=== PATIENT | female | born 1965 | race Caucasian/White ===

== ENCOUNTER 2018-12-27 22:51 | Emergency (ER) | payer SELFPAY ==
--- NOTE | 2018-12-27 23:01 | ED.PDOC ---
History of Present Illness - General Chief Complaint: Chest Pain/RI Stated Complaint: CP, SOB Time Seen by Provider: 12/27/18 22:58 Source: patient, EMS Exam Limitations: no limitations - History of Present Illness Initial Comments: patient comes in today for severe chest pain. Patient was in the shower in her usual health. When she got out she suddenly had chest tightness but converted to severe pain that radiated up her jaw and with associated shortness of breath. Patient made the bed where she lay down and her sister found her 5-10 minutes later and called 911. Patient states she continued to not be able to breathe into a second nitroglycerin was given to her via EMS. She was given aspirin as well. Patient currently is asymptomatic and feels well. Patient has a past medical history of hypertension and takes losartan. Patient states she is a smoker and has smoked a pack a day for greater than 30 years. She does not normally require oxygen but has oxygen on secondary to shortness of breath that was placed by EMS. Patient denies any nausea, vomiting, or diaphoresis. She has not been sick recently and denies any fever, chills cough or cold symptoms. Patient does not have reflux, abdominal pain, or right upper quadrant pain. Patient has no family history of coronary artery disease. Timing/Duration: 1/2 hour Severity/Quality: severe, tightness Location: substernal Chest Pain Radiation: jaw Activities at Onset: other - shower Prior Chest Pain/Cardiac Workup: no prior chest pain, no prior cardiac workup Improving Factors: medication Worsening Factors: nothing Nitro Today/Relief: 0.4 mg x 2, provided by EMS, complete relief Aspirin Treatment Today: 325 mg x 1, provided by EMS Associated Symptoms: shortness of breath Allergies/Adverse Reactions: Allergies Lisinopril Allergy (Verified 12/27/18 22:54) Sulfa Antibiotics Allergy (Verified 12/27/18 22:54) Home Medications: Ambulatory Orders Gabapentin 100 mg PO DAILY 12/27/18 Losartan Potassium [Cozaar] 50 mg PO DAILY 12/27/18 Naproxen [EC-Naprosyn] 500 mg PO BID 12/27/18 Omeprazole [Prilosec Cap] 20 mg PO ACBK 12/27/18 Paroxetine HCl 40 mg PO DAILY 12/27/18 Tramadol HCl 50 mg PO BID 12/27/18 Review of Systems - Review of Systems Constitutional: States: no symptoms reported. Denies: chills, fever EENTM: States: no symptoms reported. Denies: blurred vision, ear pain, throat pain Respiratory: States: short of breath. Denies: cough, wheezing Cardiology: States: chest pain. Denies: edema, palpitations Gastrointestinal/Abdominal: States: no symptoms reported. Denies: abdominal pain, nausea, vomiting Musculoskeletal: States: no symptoms reported Skin: States: no symptoms reported Past Medical History (General) - Patient Medical History Hx Hypertension: Yes Hx Other PMH: Yes - Anxiety Family Medical History - Family History Mother Living Status: Hx Family Asthma: No Hx Family Hypertension: Yes Hx Family Stroke: Yes Hx Cardiac Disease: Yes Hx Family Diabetes: No Hx Family Cancer: Yes Physical Exam - Physical Exam General Appearance: Alert, Comfortable, No apparent distress Eyes, Ears, Nose, Throat Exam: PERRL/EOMI, normal ENT inspection, TMs normal, pharynx normal Neck: non-tender, full range of motion, supple, normal inspection Respiratory: chest non-tender, lungs clear, normal breath sounds, no respiratory distress Cardiovascular/Chest: normal peripheral pulses, regular rate, rhythm, no edema, no gallop, no JVD, no murmur Peripheral Pulses: radial,right: 2+, radial,left: 2+ Gastrointestinal/Abdominal: normal bowel sounds, non tender, soft Extremity: non-tender, normal inspection Neurologic: alert, oriented x 3 Skin Exam: normal color Progress - Progress Progress: Patient hat complete relief of all symptoms after 2 nitro. However, her D-dimer was elevated and on questioning she did note some swelling of her left leg yesterday, although better today. Patient was informed of results and was sent for CTA to rule out PE. Patient had extravasation of 96 ml of Optiray 320. We have elevated, wrapped, and applied heat to the area. She declines pain medication at this time and there is good pulses and sensation distal to the area. We discussed that we cannot at this time rule out PE and Duplex doppler will not be available until Saturday but we could offer monitoring and Lovenox in the meantime. Patient and family are understandable hesitant to take any additional medication without diagnosis and request transfer to facility that can do other tests. We have consulted with [facility] who have accepted transfer. 12/28/18 00:40 - Results/Orders Results/Orders: 12/27/18 22:55 Telemetry .ONCE EKG Stat Pulse Ox Stat Pulse Oximetry Assessment DAILY Laboratory Results WBC 10.0 K/mm3 (4.8-10.8) 12/27/18 22:55 RBC 4.85 M/mm3 (4.20-5.40) 12/27/18 22:55 Hgb 14.8 gm/dL (12.0-16.0) 12/27/18 22:55 Hct 43.4 % (36.0-47.0) 12/27/18 22:55 MCV 89.4 fl (81.0-99.0) 12/27/18 22:55 MCH 30.5 pg (27.0-31.0) 12/27/18 22:55 MCHC 34.1 g/dL (33.0-37.0) 12/27/18 22:55 RDW 14.4 % (11.5-14.5) 12/27/18 22:55 Plt Count 235 K/mm3 (130-400) 12/27/18 22:55 MPV 9.3 fl (7.40-10.4) 12/27/18 22:55 Absolute Neuts (auto) 6.50 K/uL (1.8-6.8) 12/27/18 22:55 Absolute Lymphs (auto) 2.20 K/uL (1.0-3.4) 12/27/18 22:55 Absolute Monos (auto) 0.80 K/uL (0.2-0.8) 12/27/18 22:55 Absolute Eos (auto) 0.40 K/uL (0.0-0.4) 12/27/18 22:55 Absolute Basos (auto) 0.10 K/uL (0.0-0.1) 12/27/18 22:55 Neutrophils % 64.7 % (42.0-78.0) 12/27/18 22:55 Lymphocytes % 22.0 % (20.0-50.0) 12/27/18 22:55 Monocytes % 8.4 % (2.0-9.0) 12/27/18 22:55 Eosinophils % 3.6 % (1.0-5.0) 12/27/18 22:55 Basophils % 1.3 % (0.0-2.0) 12/27/18 22:55 PT 9.2 SECONDS (9.0-10.9) 12/27/18 22:55 INR 0.92 (0.9-1.15) 12/27/18 22:55 PTT (SP) 23.0 SECONDS (21.8-31.6) 12/27/18 22:55 D-Dimer, Quantitative 0.64 mg/L FEU (0-0.49) H* 12/27/18 22:55 Sodium 139 mmol/L (135-145) 12/27/18 22:55 Potassium 3.9 mmol/L (3.6-5.0) 12/27/18 22:55 Chloride 106 mmol/L (101-111) 12/27/18 22:55 Carbon Dioxide 23 mmol/L (21-31) 12/27/18 22:55 Anion Gap 13.9 (12-18) 12/27/18 22:55 BUN 26 mg/dL (7-18) H 12/27/18 22:55 Creatinine 0.80 mg/dL (0.6-1.3) 12/27/18 22:55 BUN/Creatinine Ratio 32.5 (10-20) H 12/27/18 22:55 Random Glucose 129 mg/dL (70-105) H 12/27/18 22:55 Serum Osmolality 284.0 mOsm/L (275-295) 12/27/18 22:55 Calcium 8.3 mg/dL (8.4-10.2) L 12/27/18 22:55 Magnesium 2.1 mg/dL (1.8-2.5) 12/27/18 22:55 Total Bilirubin < 0.2 mg/dL (0.2-1.0) L 12/27/18 22:55 Direct Bilirubin < 0.1 mg/dL (0-0.2) 12/27/18 22:55 Indirect Bilirubin 0.1 mg/dL (0.2-0.8) L 12/27/18 22:55 AST 18 IU/L (10-42) 12/27/18 22:55 ALT 15 IU/L (10-60) 12/27/18 22:55 Alkaline Phosphatase 73 IU/L (42-121) 12/27/18 22:55 Creatine Kinase 153 IU/L (26-140) H 12/27/18 22:55 CK-MB (CK-2) 5.1 ng/mL (0.0-4.4) H* 12/27/18 22:55 CK-MB (CK-2) % 3.33 % (0.0-4.3) 12/27/18 22:55 Troponin I < 0.02 ng/mL (0.01-0.05) 12/27/18 22:55 B-Natriuretic Peptide < 5.0 pg/ml (0-100) 12/27/18 22:55 Serum Total Protein 5.9 gm/dL (6.4-8.2) L 12/27/18 22:55 Albumin 3.2 g/dl (3.2-5.5) 12/27/18 22:55 Patient Name: JAMESON ROBERTS Gender: Female Date of : 1965 Referring Physician: GIOVANNA MCNEAL Organization: [facility] Accession Number: [id number] Requested Date: December 27, 2018 23:29 Report Status: Final Requested Procedure: 1 Procedure Description: Chest w/o Contrast Modality: CT Findings Reporting MD: Abbey Vincent Fellow MD: Not available Dictation Time: Carbon Accountant: Not available Audio Visual Coordinator Date: EXAM: CT Chest Without Intravenous Contrast CLINICAL HISTORY: The patient is 53 years old and is Female; chest pain with elevated D-Dimer r/o PE TECHNIQUE: Axial computed tomography images of the chest without intravenous contrast. Sagittal and coronal reformatted images were created and reviewed. This CT exam was performed using one or more of the following dose reduction techniques: automated exposure control, adjustment of the mA and/or kV according to patient size, and/or use of iterative reconstruction technique. COMPARISON: No relevant prior studies available. FINDINGS: ARTIFACTS: The exam is suboptimal secondary to motion artifact. LUNGS: See below. PLEURAL SPACE: Unremarkable. No pneumothorax. No significant effusion. HEART: No cardiomegaly. No pericardial effusion. MEDIASTINUM: The tracheobronchial tree is widely patent. There is no consolidation. BONES/JOINTS: No acute fracture. SOFT TISSUES: The soft tissues are normal. VASCULATURE: Unremarkable. No thoracic aortic aneurysm. LYMPH NODES: Unremarkable. No enlarged lymph nodes. LIVER: Punctate 4mm low attenuating foci are present within the right hepatic lobe and left hepatic lobe. These are too small to accurately characterize. IMPRESSION: No acute findings on this noncontrasted CT of the chest. Patient Name: JAMESON ROBERTS Gender: Female Date of : 1965 Referring Physician: GIOVANNA MCNEAL Organization: [facility] Accession Number: [id number] Requested Date: December 27, 2018 22:55 Report Status: Final Requested Procedure: 1 Procedure Description: Chest,1 View Modality: CR Findings Reporting MD: Alfredo Aponte Fellow MD: Not available Dictation Time: Carbon Accountant: Not available Audio Visual Coordinator Date: EXAM DESCRIPTION: Chest,1 View CLINICAL HISTORY: 53 years Female, CP COMPARISON: None. FINDINGS: Small amount of hazy, vague opacity in the medial right upper lung zone is demonstrated with obscuration of the right heart border. No pneumothorax. No significant pleural effusion. Cardiomediastinal silhouette is unremarkable. Osseous structures are unremarkable. IMPRESSION: Small amount of hazy opacity in the medial right lung lower lung zone may represent atelectasis or cardiophrenic fat with small infiltrate difficult to entirely exclude and clinical correlation recommended. Lateral x-ray may be helpful if there is suspicion for pneumonia. - EKG/XRAY/CT EKG: Sinus, no ST T wave changes Comments: Normal axis, normal QTC Departure - Departure Clinical Impression: Elevated d-dimer Chest pain Qualifiers: Chest pain type: unspecified Qualified Code(s): R07.9 - Chest pain, unspecified Extravasation injury of IV catheter site with other complication Qualifiers: Encounter type: initial encounter Qualified Code(s): T82.898A - Other specified complication of vascular prosthetic devices, implants and grafts, initial encounter Disposition: Transfer to Hospital Condition: Good Departure Forms: ED Discharge - Pt. Copy, Patient Portal Self Enrollment Instructions: DI for Chest Pain Home Medications: Ambulatory Orders Gabapentin 100 mg PO DAILY 12/27/18 Losartan Potassium [Cozaar] 50 mg PO DAILY 12/27/18 Naproxen [EC-Naprosyn] 500 mg PO BID 12/27/18 Omeprazole [Prilosec Cap] 20 mg PO ACBK 12/27/18 Paroxetine HCl 40 mg PO DAILY 12/27/18 Tramadol HCl 50 mg PO BID 12/27/18 Transfer to Outside Facility - Transfer Information Accepting Provider:: Mauri Accepting Facility: [facility] Reason for Transfer: specialized care not available
--- NOTE | 2018-12-27 23:13 | RAD ---
EXAM DESCRIPTION: Chest,1 View CLINICAL HISTORY: 53 years Female, CP COMPARISON: None. FINDINGS: Small amount of hazy, vague opacity in the medial right upper lung zone is demonstrated with obscuration of the right heart border. No pneumothorax. No significant pleural effusion. Cardiomediastinal silhouette is unremarkable. Osseous structures are unremarkable. IMPRESSION: Small amount of hazy opacity in the medial right lung lower lung zone may represent atelectasis or cardiophrenic fat with small infiltrate difficult to entirely exclude and clinical correlation recommended. Lateral x-ray may be helpful if there is suspicion for pneumonia. Electronically signed by: Alfredo Aponte MD 12/27/2018 11:10 PM CDT
--- NOTE | 2018-12-28 00:16 | CT ---
EXAM: CT Chest Without Intravenous Contrast CLINICAL HISTORY: The patient is 53 years old and is Female; chest pain with elevated D-Dimer r/o PE TECHNIQUE: Axial computed tomography images of the chest without intravenous contrast. Sagittal and coronal reformatted images were created and reviewed. This CT exam was performed using one or more of the following dose reduction techniques: automated exposure control, adjustment of the mA and/or kV according to patient size, and/or use of iterative reconstruction technique. COMPARISON: No relevant prior studies available. FINDINGS: ARTIFACTS: The exam is suboptimal secondary to motion artifact. LUNGS: See below. PLEURAL SPACE: Unremarkable. No pneumothorax. No significant effusion. HEART: No cardiomegaly. No pericardial effusion. MEDIASTINUM: The tracheobronchial tree is widely patent. There is no consolidation. BONES/JOINTS: No acute fracture. SOFT TISSUES: The soft tissues are normal. VASCULATURE: Unremarkable. No thoracic aortic aneurysm. LYMPH NODES: Unremarkable. No enlarged lymph nodes. LIVER: Punctate 4mm low attenuating foci are present within the right hepatic lobe and left hepatic lobe. These are too small to accurately characterize. IMPRESSION: No acute findings on this noncontrasted CT of the chest. Electronically signed by: Abbey Vincent MD 12/28/2018 12:13 AM CDT
[2018-12-28] MEDS ORDERED: ALPRAZolam 0.25 MG TAB PO ONE (00:35)
[2018-12-28] MEDS ORDERED: ALPRAZolam 0.5 MG TAB ONE (00:37)
[2018-12-28 02:46] VITALS: BP 145/85; TEMP 98.1; O2SAT 97
== END 2018-12-28 03:00 | disposition short-term general hospital (02) ==
LOC: ER 22:51
DX: R07.2 Precordial pain (principal); R79.89 Other specified abnormal findings of blood chemistry; T82.898A Other specified complication of vascular prosthetic devices, implants and grafts, initial encounter; R06.02 Shortness of breath; I10 Essential (primary) hypertension; F41.9 Anxiety disorder, unspecified; F17.210 Nicotine dependence, cigarettes, uncomplicated; Z79.899 Other long term (current) drug therapy; Z88.8 Allergy status to other drugs, medicaments and biological substances; Z88.2 Allergy status to sulfonamides